=== PATIENT | male | born 2000 | race Hispanic/Latino ===

== ENCOUNTER 2019-02-23 16:36 | Emergency (ER) | payer BC ==
[2019-02-23 17:43] LABS: MONO NEGATIVE CONTROL ZONE White (Negative) (White); MONO POSITIVE CONTROL Pink Line (Positive) (PINK/RED); Mononucleosis NEGATIVE (NEGATIVE)
== END 2019-02-23 18:54 | disposition home or self-care (01) ==
LOC: ERS 16:36
DX: B86 Scabies (principal); T36.0X5A Adverse effect of penicillins, initial encounter; F17.210 Nicotine dependence, cigarettes, uncomplicated; F41.9 Anxiety disorder, unspecified; Z79.899 Other long term (current) drug therapy
CPT/HCPCS: 36415; 86308; 87081; 87430; 99283

== ENCOUNTER 2019-07-19 16:33 | Emergency (ER) | payer BC ==
[2019-07-19] MEDS ORDERED: Dexamethasone 10 MG/ML VIAL ONE (17:17)
== END 2019-07-19 17:22 | disposition home or self-care (01) ==
LOC: ERS 16:33
DX: J02.9 Acute pharyngitis, unspecified (principal); F41.9 Anxiety disorder, unspecified; F17.220 Nicotine dependence, chewing tobacco, uncomplicated; Z79.899 Other long term (current) drug therapy
CPT/HCPCS: 87081; 87430; 99283; J1100